=== PATIENT | female | born 1995 | race Caucasian/White ===

== ENCOUNTER 2017-11-07 17:43 | Emergency (ER) | payer SELFPAY ==
[~2017-11-07] VITALS: Ht 170.2 cm; Wt 63.6 kg
[~2017-11-07 17:43] MED LIST: HYDROCODON-ACE1 EAC7 PO; MOTRIN600 MG PO
[2017-11-07 18:05] VITALS: Ht 170.2 cm; Wt 63.6 kg
[2017-11-07 18:24] LABS: BASOPHILS 0.1 % (0-2); EOSINOPHILS 0.1 % (0-7); HEMATOCRIT 40.2 % (36.0-48.0); IMMATURE GRANULOCYTES 0.1 % (0-5); LYMPHOCYTES 17.6 % (15-50); MCHC 34.8 g/dL (31.0-37.0); MCV 86.1 fL (80.0-100.0); MEAN PLATELET VOLUME 11.2 fL (7.4-10.4); MONOCYTES 7.2 % (2-11); NEUTROPHILS 74.9 % (40-80); PLATELET COUNT 145 10x3/uL (130-400); RBC 4.67 10x6/uL (4.00-5.40); RDW 12.4 % (11.5-14.5); WBC 6.8 10x3/uL (4.8-10.8)
[2017-11-07 18:46] LABS: ALBUMIN 3.5 g/dL (3.4-5.0); ALKALINE PHOSPHATASE 57 U/L (46-116); ALT (SGPT) 16 U/L (10-68); BILIRUBIN - TOTAL 0.35 mg/dL (0.2-1.3); CALC OSMOLALITY 271 mosm/kg (275-300); CALCIUM 8.4 mg/dL (8.5-10.1); CHLORIDE - SERUM 100 mmol/L (98-107); CREATININE - SERUM 0.8 mg/dL (0.6-1.3); GLUCOSE 113 mg/dL (74-106); POTASSIUM - SERUM 3.3 mmol/L (3.5-5.1); PROTEIN - SERUM 7.4 g/dL (6.4-8.2); SODIUM 136 mmol/L (136-145); UREA NITROGEN 9 mg/dL (7-18); eGFR NON AFRICAN AMERICAN > 90 mL/min (90-120)
[2017-11-07] MEDS ORDERED: PHENERGAN DM SYR5 ML PO (20:31)
[2017-11-07] MEDS ORDERED: AMOXICILLIN500 M1 PO (20:31)
[2017-11-07 20:45] VITALS: BP 118/73
== END 2017-11-07 20:46 | disposition home or self-care (01) ==
LOC: D.ER 17:43
PROVIDERS: Family Medicine
DX: J02.9 Acute pharyngitis, unspecified (principal); J06.9 Acute upper respiratory infection, unspecified